=== PATIENT | male | born 1960 | race Caucasian/White ===

== ENCOUNTER 2018-11-24 12:13 | Inpatient (IN) | payer OTHER ==
[~2018-11-24] VITALS: Ht 165.1 cm; Wt 83.0 kg
[2018-11-24 12:18] VITALS: Ht 165.1 cm; Wt 83.0 kg
[2018-11-24 13:48] LABS: BASOPHIL % 0.6 % (0-2); PLATELET COUNT 287 x10^3mcL (130-400)
[2018-11-24 13:50] LABS: RED CELL DISTRIBUTION WIDTH 18.1 % (11.5-14.5)
[2018-11-24 13:52] LABS: ALBUMIN 3.4 g/dL (3.4-5.0); BILIRUBIN TOTAL 0.44 mg/dL (0.20-1.00); CALCIUM 9.1 mg/dL (8.5-10.1); CARBON DIOXIDE 25.1 mmol/L (21-32); POTASSIUM SERUM 4.8 mmol/L (3.5-5.1); TOTAL PROTEIN, SERUM 7.9 g/dL (6.4-8.2)
[2018-11-24 13:55] LABS: CREATININE SERUM 17.7 mg/dL (0.7-1.3)
[2018-11-24] MEDS ORDERED: CALCITRIOL0.25 MCG PO (15:31)
[2018-11-24] MEDS ORDERED: CARVEDILOL6.25 M1 PO (15:31)
[2018-11-24] MEDS ORDERED: NEPHRO-VITE VITA1 EA PO (15:31)
[2018-11-24] MEDS ORDERED: NOR10 PO (15:32)
[2018-11-24] MEDS ORDERED: RENVELA800 M1 PO (15:32)
[2018-11-24] MEDS ORDERED: FUROSEMIDE80 MG PO (15:33)
[2018-11-24 17:27] VITALS: BP 183/99
[2018-11-24 17:39] LABS: CHOLESTEROL/HDL RATIO 4.2; MAGNESIUM 3.2 mg/dL (1.8-2.4); PHOSPHOROUS 8.9 mg/dL (2.5-4.9)
[2018-11-24 18:53] LABS: T3 TOTAL 0.84 ng/mL
[2018-11-24 18:57] LABS: FREE T4 0.78 ng/dL (0.76-1.46); FREE THYROXINE INDEX 1.9 ug/dL (1.4-4.5); T4(THYROXINE) 6.2 ug/dL (4.7-13.3)
[2018-11-24 21:15] VITALS: BP 153/95
[2018-11-25 05:28] VITALS: BP 134/82
[2018-11-25 06:26] LABS: CALCIUM 8.8 mg/dL (8.5-10.1); CARBON DIOXIDE 23.6 mmol/L (21-32); MAGNESIUM 3.2 mg/dL (1.8-2.4); POTASSIUM SERUM 5.2 mmol/L (3.5-5.1)
[2018-11-25 06:28] LABS: PHOSPHOROUS 10.7 mg/dL (2.5-4.9)
[2018-11-25 06:30] LABS: CREATININE SERUM 18.6 mg/dL (0.7-1.3)
[2018-11-25 06:34] LABS: BASOPHIL % 0.5 % (0-2); PLATELET COUNT 275 x10^3mcL (130-400)
[2018-11-25 06:35] LABS: RED CELL DISTRIBUTION WIDTH 18.5 % (11.5-14.5)
[2018-11-25 08:38] VITALS: BP 136/86
[2018-11-25 10:18] VITALS: BP 136/86
== END 2018-11-25 10:48 | disposition home or self-care (01) | DRG 205 ==
LOC: ED 12:13 → DU 16:08
PROVIDERS: Emergency Medicine; ADMIT General Practice
DX: M94.0 Chondrocostal junction syndrome [Tietze] (principal); N18.6 End stage renal disease; N17.0 Acute kidney failure with tubular necrosis; K21.9 Gastro-esophageal reflux disease without esophagitis; D63.1 Anemia in chronic kidney disease; E87.5 Hyperkalemia; E83.39 Other disorders of phosphorus metabolism; E83.52 Hypercalcemia; Z99.2 Dependence on renal dialysis
CPT/HCPCS: 83880; 84439; Q0092

== ENCOUNTER 2020-09-10 05:57 | Inpatient (IN) | payer OTHER ==
[~2020-09-10] VITALS: Ht 165.1 cm; Wt 70.3 kg
[~2020-09-10 05:57] MED LIST: CALCITRIOL0.25 MCG PO; CARVEDILOL6.25 M1 PO; FUROSEMIDE80 MG PO; NEPHRO-VITE VITA1 EA PO; NOR10 PO; RENVELA800 M1 PO
[2020-09-10 06:11] VITALS: Ht 165.1 cm; Wt 70.3 kg
[2020-09-10 07:42] LABS: ALBUMIN 2.6 g/dL (3.4-5.0); ALKALINE PHOSPHATASE 99 U/L (46-116); ALT/SGPT 117 U/L (16-63); AST/SGOT 224 U/L (15-37); BILIRUBIN TOTAL 0.74 mg/dL (0.20-1.00); CALCIUM 8.2 mg/dL (8.5-10.1); CARBON DIOXIDE 24.8 mmol/L (21-32); CHLORIDE SERUM 93 mmol/L (98-107); GFR1 8 mL/min; GLUCOSE SERUM 183 mg/dL (74-106); LACTIC DEHYDROGENASE (LDH) 488 U/L (100-190); SODIUM SERUM 131 mmol/L (136-145); TOTAL PROTEIN, SERUM 8.1 g/dL (6.4-8.2)
[2020-09-10 07:47] LABS: BASOPHIL % 0.3 % (0.2-1.5); C REACTIVE PROTEIN 50.9 mg/dL (<=0.9); RED CELL DISTRIBUTION WIDTH 14.4 % (12.1-16.2)
[2020-09-10 07:48] LABS: CREATININE SERUM 7.6 mg/dL (0.7-1.3); POTASSIUM SERUM 5.9 mmol/L (3.5-5.1)
[2020-09-10 10:41] LABS: PLATELET COUNT 127 x10^3mcL (152-348)
[2020-09-11 00:42] VITALS: BP 122/73
[2020-09-11 06:53] LABS: CALCIUM 8.1 mg/dL (8.5-10.1); CARBON DIOXIDE 28.6 mmol/L (21-32); PHOSPHOROUS 4.4 mg/dL (2.5-4.9); POTASSIUM SERUM 5.1 mmol/L (3.5-5.1)
[2020-09-11 07:00] LABS: CREATININE SERUM 8.1 mg/dL (0.7-1.3)
[2020-09-12 06:51] LABS: BASOPHIL % 0.2 % (0.2-1.5); PLATELET COUNT 234 x10^3mcL (152-348)
[2020-09-12 06:52] LABS: RED CELL DISTRIBUTION WIDTH 14.7 % (12.1-16.2); rbc morphology (normal/abnorm) NORMAL (NORMAL)
[2020-09-12 07:02] LABS: CALCIUM 8.6 mg/dL (8.5-10.1); CARBON DIOXIDE 32.1 mmol/L (21-32); POTASSIUM SERUM 4.2 mmol/L (3.5-5.1)
[2020-09-12 07:05] LABS: CREATININE SERUM 6.6 mg/dL (0.7-1.3)
[2020-09-13 08:42] LABS: CARBON DIOXIDE 31.4 mmol/L (21-32); POTASSIUM SERUM 3.7 mmol/L (3.5-5.1)
[2020-09-13 08:44] LABS: CREATININE SERUM 5.6 mg/dL (0.7-1.3)
[2020-09-13 15:10] LABS: BASOPHIL % 0.5 % (0.2-1.5); PLATELET COUNT 251 x10^3mcL (152-348)
[2020-09-13 15:31] LABS: RED CELL DISTRIBUTION WIDTH 14.8 % (12.1-16.2)
[2020-09-14 23:53] VITALS: BP 120/66
[2020-09-15 06:23] VITALS: BP 135/57
[2020-09-15 09:03] VITALS: BP 143/65
[2020-09-15 12:49] VITALS: BP 105/66
[2020-09-15 16:14] VITALS: BP 149/67
[2020-09-15 21:30] VITALS: BP 119/67
[2020-09-16 06:00] VITALS: BP 116/69
[2020-09-16 07:49] LABS: BASOPHIL % 0.4 % (0.2-1.5); PLATELET COUNT 308 x10^3mcL (152-348)
[2020-09-16 08:27] LABS: CALCIUM 8.9 mg/dL (8.5-10.1); CARBON DIOXIDE 31.3 mmol/L (21-32); POTASSIUM SERUM 3.9 mmol/L (3.5-5.1)
[2020-09-16 09:38] VITALS: BP 113/55
[2020-09-16 09:47] LABS: RED CELL DISTRIBUTION WIDTH 14.6 % (12.1-16.2)
[2020-09-16 11:44] VITALS: BP 120/70
[2020-09-16 13:37] LABS: rbc morphology (normal/abnorm) ABNORMAL (NORMAL)
[2020-09-16 13:38] LABS: acanthocyte (spur cell) 1+; ovalocyte/elliptocyte 1+
[2020-09-16 18:00] VITALS: BP 120/65
[2020-09-16 21:42] VITALS: BP 127/72
[2020-09-17 06:18] VITALS: BP 130/71
[2020-09-17 10:06] VITALS: BP 130/69
[2020-09-17 14:29] VITALS: BP 117/72
[2020-09-17 17:43] VITALS: BP 138/72
[2020-09-17 22:10] VITALS: BP 136/75
[2020-09-18 06:05] VITALS: BP 133/70
[2020-09-18 08:55] VITALS: BP 123/68
[2020-09-18 12:19] VITALS: BP 108/62
[2020-09-18 18:09] VITALS: BP 130/71
[2020-09-18 21:50] VITALS: BP 133/73
[2020-09-19 06:13] VITALS: BP 132/69
[2020-09-19 08:00] VITALS: BP 135/74
[2020-09-19 11:49] LABS: CALCIUM 9.1 mg/dL (8.5-10.1); CARBON DIOXIDE 24.1 mmol/L (21-32); POTASSIUM SERUM 3.8 mmol/L (3.5-5.1)
[2020-09-19 11:50] LABS: CREATININE SERUM 6.8 mg/dL (0.7-1.3)
[2020-09-19 12:00] LABS: BASOPHIL % 0.3 % (0.2-1.5); PLATELET COUNT 367 x10^3mcL (152-348)
[2020-09-19 12:18] LABS: RED CELL DISTRIBUTION WIDTH 14.8 % (12.1-16.2)
[2020-09-19 13:21] VITALS: BP 128/67
[2020-09-19 15:16] LABS: rbc morphology (normal/abnorm) ABNORMAL (NORMAL)
[2020-09-19 17:33] VITALS: BP 129/77
[2020-09-19 22:00] VITALS: BP 85/48
[2020-09-20 06:56] VITALS: BP 91/55
[2020-09-20 10:21] VITALS: BP 140/77
[2020-09-20 13:40] VITALS: BP 132/74
[2020-09-20 22:25] VITALS: BP 98/67
[2020-09-21 06:50] VITALS: BP 134/75
[2020-09-21 09:37] VITALS: BP 143/79
[2020-09-21 13:15] VITALS: BP 146/76
== END 2020-09-21 15:05 | disposition home or self-care (01) | DRG 871 ==
LOC: ED 05:57 → DU 10:14 → IC 10:14 → DU 23:25 → IC 09-11 11:55 → DU 09-14 23:22
PROVIDERS: Emergency Medicine; Internal Medicine; ADMIT Internal Medicine; ATTEND Internal Medicine
PROC: 5A1D70Z Performance of Urinary Filtration, Intermittent, Less than 6 Hours Per Day (ICD-10-PCS; 2020-09-12)
PROC: 5A1D70Z Performance of Urinary Filtration, Intermittent, Less than 6 Hours Per Day (ICD-10-PCS; principal; 2020-09-16)
PROC: 5A1D70Z Performance of Urinary Filtration, Intermittent, Less than 6 Hours Per Day (ICD-10-PCS; 2020-09-18)
PROC: 5A1D70Z Performance of Urinary Filtration, Intermittent, Less than 6 Hours Per Day (ICD-10-PCS; 2020-09-20)
DX: A41.89 Other specified sepsis (principal); U07.1 COVID-19; J96.01 Acute respiratory failure with hypoxia; N18.6 End stage renal disease; J12.82 Pneumonia due to coronavirus disease 2019; I12.0 Hypertensive chronic kidney disease with stage 5 chronic kidney disease or end stage renal disease; E87.1 Hypo-osmolality and hyponatremia; E87.2 Acidosis; D63.1 Anemia in chronic kidney disease; R65.20 Severe sepsis without septic shock; E87.5 Hyperkalemia; D69.6 Thrombocytopenia, unspecified; E66.9 Obesity, unspecified; Z68.26 Body mass index [BMI] 26.0-26.9, adult; Z79.899 Other long term (current) drug therapy
CPT/HCPCS: 83880; 85378; 87804; G0378; J0696; J0885-EC; J1100; J1644; J1815; J3490; J7030; J7060; P9047; U0003